=== PATIENT | male | born 1995 | race African-American/Black ===

== ENCOUNTER 2021-08-07 04:16 | Emergency (ER) | payer SELFPAY ==
[~2021-08-07] VITALS: Ht 182.9 cm; Wt 89.0 kg
[2021-08-07] MEDS ORDERED: ONDANSETRON 4MG ODT PO STA (04:40)
[2021-08-07] MEDS ORDERED: ONDANSETRON HCL 4MG/2ML INJ IV STA (04:48)
[2021-08-07] MEDS ORDERED: SODIUM CHLORIDE 0.9% 1,000 ML IV ONE ×2 (05:00→05:15)
[2021-08-07] MEDS ORDERED: FAMOTIDINE 20MG/2ML VIAL IV ONE (05:00)
[2021-08-07] MEDS ORDERED: BUPRENORPHINE 8MG SL TABLET SL ONE (05:15)
[2021-08-07 05:39] LABS: BASOPHILS % 0.2 % (0.0-2.0); EOSINOPHILS % 0.2 % (0.0-5.0); HEMATOCRIT. 44.8 % (42.0-52.0); HEMOGLOBIN. 15.3 g/dL (14.0-18.0); LYMPHOCYTES % 9.2 % (20.0-50.0); MEAN CORPUSCULAR HEMOGLOBIN 27.4 pg (28.0-32.0); MEAN CORPUSCULAR VOLUME 80.3 fL (80.0-94.0); MEAN PLATELET VOLUME 9.3 fl (7.4-10.4); MONOCYTES % 6.8 % (2.0-8.0); NEUTROPHILS % 83.6 % (40.0-76.0); PLATELET 163 x1000/uL (130-400); RED BLOOD CELL COUNT 5.58 mill/uL (4.7-6.1); RED CELL DISTRIBUTION WIDTH 13.6 % (11.6-14.6)
[2021-08-07] MEDS ORDERED: KETOROLAC 30MG/ML VIAL IV ONE (06:00)
[2021-08-07 06:01] LABS: CHLORIDE 106 mEq/L (98-107)
[2021-08-07 08:00] VITALS: BP 112/66
== END 2021-08-07 08:25 | disposition home or self-care (01) ==
LOC: ER 04:16
DX: F11.23 Opioid dependence with withdrawal (principal); R11.2 Nausea with vomiting, unspecified; J45.909 Unspecified asthma, uncomplicated; Z90.49 Acquired absence of other specified parts of digestive tract
CPT/HCPCS: 36415; 80053; 83690; 85025; 96361; 96374; 96375; 99284; J1885; J2405; J3490; J7030; Z7610